=== PATIENT | female | born 1935 | race Caucasian/White ===

== ENCOUNTER 2023-11-06 13:08 | Emergency (ER) | payer MEDICARE ==
[2023-11-06 13:20] VITALS: RESP 18
--- NOTE | 2023-11-06 13:38 | ED ---
Fall HPI - General Chief Complaint: Fall Stated Complaint: Fall-L sided facial injury Time Seen by Provider: 11/06/23 13:37 Source: patient, family, RN notes reviewed Mode of arrival: ambulatory Limitations: no limitations - History of Present Illness Initial Comments: 88-year-old male presented to ER with a chief complaint of a fall. Patient states yesterday she was attempting to water her plants outside and carrying a tin of water outside. She is unsure if she slipped on water that accidentally got on the ground or her rug. She states that she fell landing on her left side. She does report hitting the left side of her face and ear. She states since then she has been having a dull intermittent ear pain. She denies loss of consciousness or blood thinner use. She also is reporting her left fifth digit was caught in the incident. Tetanus status unknown. Denies any other injuries or complaints. - Related Data Home Medications Medication Instructions Recorded Confirmed Atorvastatin [Lipitor] 20 mg PO HS 11/06/23 11/06/23 Losartan [Cozaar] 25 mg PO HS 11/06/23 11/06/23 Metoprolol Tartrate [Lopressor] 25 mg PO BID 11/06/23 11/06/23 Montelukast [Singulair] 10 mg PO DAILY 11/06/23 11/06/23 Omeprazole [PriLOSEC] 20 mg PO DAILY 11/06/23 11/06/23 Allergies Allergy/AdvReac Type Severity Reaction Status Date / Time seasonal AdvReac Unknown Uncoded 11/06/23 14:53 Review of Systems ROS Statement: Those systems with pertinent positive or pertinent negative responses have been documented in the HPI. ROS Other: All systems not noted in ROS Statement are negative. Past Medical History Past Medical History: Cancer, GERD/Reflux, Hyperlipidemia, Hypertension Additional Past Medical History / Comment(s): post nasal drip History of Any Multi-Drug Resistant Organisms: None Reported Past Surgical History: Breast Surgery Past Psychological History: No Psychological Hx Reported Smoking Status: Never smoker Past Alcohol Use History: None Reported Past Drug Use History: None Reported General Exam General appearance: alert, in no apparent distress Head exam: Present: atraumatic, normocephalic, normal inspection Eye exam: Present: normal appearance, PERRL, EOMI, other (mild tenderness of left cheek no erythema or abrasion). Absent: scleral icterus, conjunctival injection, periorbital swelling Pupils: Present: normal accommodation (4mm) ENT exam: Present: normal exam, normal oropharynx, mucous membranes moist, TM's normal bilaterally (no mastoid tenderness or hemotympanums) Neck exam: Present: normal inspection. Absent: tenderness, meningismus, lymphadenopathy Respiratory exam: Present: normal lung sounds bilaterally. Absent: respiratory distress, wheezes, rales, rhonchi, stridor Cardiovascular Exam: Present: regular rate, normal rhythm, normal heart sounds. Absent: systolic murmur, diastolic murmur, rubs, gallop, clicks Extremities exam: Present: normal inspection, full ROM, normal capillary refill. Absent: tenderness, pedal edema, joint swelling, calf tenderness Back exam: Present: normal inspection Neurological exam: Present: alert, oriented X3, CN II-XII intact Skin exam: Present: warm, dry, intact, normal color, other (1cm superficial abrasion to distal left 5th digit. no active bleeding. full active ROM.). Absent: rash Course Vital Signs 11/06/23 13:10 Temperature 98.9 F Pulse Rate 71 Respiratory 18 Rate Blood Pressure 188/92 O2 Sat by Pulse 98 Oximetry Medical Decision Making - Medical Decision Making Was pt. sent in by a medical professional or institution (, PA, [facility] [facility], urgent care, hospital, or assisted...) When possible be specific @ -No Did you speak to anyone other than the patient for history (EMS, parent, family, police, friend...)? What history was obtained from this source @ -Family aiding in HPI Did you review nursing and triage notes (agree or disagree)? Why? @ -I reviewed and agree with nursing and triage notes Were old charts reviewed (outside hosp., previous admission, EMS record, old EKG, old radiological studies, urgent care reports/EKG's, assisted records)? Report findings @ -No old charts were reviewed Differential Diagnosis (chest pain, altered mental status, abdominal pain women, abdominal pain men, vaginal bleeding, weakness, fever, dyspnea, syncope, headache, dizziness, GI bleed, back pain, seizure, CVA, palpatations, mental health, musculoskeletal)? @ -Fracture, dislocation, contusion, hematoma, intracranial hemorrhage, concussion, abrasion, laceration this list does not like to be all-inclusive EKG interpreted by me (3pts min.). @ -None X-rays interpreted by me (1pt min.). @ -None done CT interpreted by me (1pt min.). @ -CT brain negative for acute process. CT facial bones without contrast significant for left cheek edema. No acute fractures or dislocations. U/S interpreted by me (1pt. min.). @ -None done What testing was considered but not performed or refused? (CT, X-rays, U/S, labs)? Why? @ -None What meds were considered but not given or refused? Why? @ -Patient refused analgesic medication. Did you discuss the management of the patient with other professionals (professionals i.e. , PA, [employer], lab, RT, psych nurse, older adult social work specialist, mobile device developer, teacher, security police officer, director of casework services)? Give summary @ -No Was smoking cessation discussed for >3mins.? @ -No Was critical care preformed (if so, how long)? @ -No Were there social determinants of health that impacted care today? How? (Homelessness, low income, unemployed, alcoholism, drug addiction, transportation, low edu. Level, literacy, decrease access to med. care, custodial, rehab)? @ -No Was there de-escalation of care discussed even if they declined (Discuss DNR or withdrawal of care, Hospice)? DNR status @ -No What co-morbidities impacted this encounter? (DM, HTN, Smoking, COPD, CAD, Cancer, CVA, ARF, Chemo, Hep., AIDS, mental health diagnosis, sleep apnea, morbid obesity)? @ -None Was patient admitted / discharged? Hospital course, mention meds given and ro italo, prescriptions, significant lab abnormalities, going to OR and other pertinent info. @ -Discharge. 88-year-old female presented to ER with a chief complaint of a fall. History and physical exam completed. Vitals stable. Exam significant for mild tenderness and edema to left cheek. No acute neurological findings on exam. No raccoon eyes or brooks signs. No hemotympanum. CT brain/facial bones performed to rule out acute intracranial or facial bone abnormality . CTs negative for acute process. Patient refused analgesic medication. Upon reevaluation, patient resting comfortably in exam room in no signs of acute distress. Results discussed with patient, all questions answered. Patient stable for discharge at this time. Advise close follow-up with PCP. Strict return parameters discussed. Patient discharged in stable condition. Patient verbally expressed understanding and agreement with care plan. Case discussed with ED attending, Dr. Carmona. Undiagnosed new problem with uncertain prognosis? @ -No Drug Therapy requiring intensive monitoring for toxicity (Heparin, Nitro, Insulin, Cardizem)? @ -No Were any procedures done? @ -No Diagnosis/symptom? @ -Facial contusion/fall Acute, or Chronic, or Acute on Chronic? @ -Acute Uncomplicated (without systemic symptoms) or Complicated (systemic symptoms)? @ -Uncomplicated Side effects of treatment? @ -No Exacerbation, Progression, or Severe Exacerbation? @ -No Poses a threat to life or bodily function? How? (Chest pain, USA, [place], pneumonia, PE, COPD, DKA, ARF, appy, cholecystitis, CVA, Diverticulitis, Homicidal, Valdes icidal, threat to staff... and all critical care pts) @ -No - Radiology Data Radiology results: report reviewed, image reviewed Disposition Clinical Impression: Fall, Facial contusion Disposition: HOME SELF-CARE Condition: Stable Instructions (If sedation given, give patient instructions): Fall Prevention for Older Adults (ED) Additional Instructions: Follow-up with primary care physician. Return to the ER for any new or worsening concerns. Is patient prescribed a controlled substance at d/c from ED?: No Referrals: Nonstaff,Physician [Primary Care Provider] - 1-2 days Forms: Area PCPs Time of Disposition: 15:02
[2023-11-06] MEDS: DIPH,PERTUS(ACELL)TETVAC-LF 0.5 ML VIAL IM ONE (14:11)
--- NOTE | 2023-11-06 14:55 | CT ---
EXAMINATION TYPE: CT brain wo con, CT facial bones wo con CT DLP: 1271.4 mGycm, Automated exposure control for dose reduction was used. DATE OF EXAM: 11/06/2023 2:35 PM COMPARISON: Facial same day. CLINICAL INDICATION:Female, 88 years old with history of fall, Fall yesterday, trauma to LT side of f sujey TECHNIQUE: Brain: Axial CT images of the brain were obtained with coronal and sagittal reformats created and rev iewed. Facial: Axial CT imaging of the facial structures with sagittal coronal reformats. Contrast used: None. Oral contrast used: None. FINDINGS: Brain: Extra-axial spaces: No abnormal extra-axial fluid collections. Ventricular system: Within normal limits Cerebral parenchyma: No acute intraparenchymal hemorrhage or mass effect. The bolivar-white junction is well differentiated. Cerebellum: Unremarkable. Mass effect: No evidence of midline shift. Intracranial vasculature: Atherosclerotic calcifications of the intracranial vessels. Soft tissues: Normal. Calvarium/osseous structures: No depressed skull fracture. Paranasal sinuses and mastoid air cells: Mild scattered paranasal sinus disease. Visualized orbits: Bilateral aphakia facial structures: No evidence for acute fracture. Small amount of edema in the left cheek with fat s tranding present.. Diffuse osseous demineralization of the osseous structures. Does bilaterally aphak ia. No significant paranasal sinus disease. Mild degeneration changes of the temporal mandibular join ts bilaterally. The temporal bones are within normal limits. IMPRESSION: 1. No acute intracranial process. 2. No evidence for facial fracture. 3. Left cheek edema.
[2023-11-06 15:14] VITALS: BP 152/81; PULSE 69; TEMP 98.1
== END 2023-11-06 15:14 | disposition home or self-care (01) ==
LOC: EC 13:08
DX: S00.83XA Contusion of other part of head, initial encounter (principal); Z91.048 Other nonmedicinal substance allergy status; Z23 Encounter for immunization; W19.XXXA Unspecified fall, initial encounter
CPT/HCPCS: 70450; 70486; 90471; 90715; 99283